=== PATIENT | female | born 1955 | race Caucasian/White ===

== ENCOUNTER 2016-10-18 05:07 | Inpatient (IN) | payer MEDICARE, MEDICAID ==
[~2016-10-18] VITALS: Ht 160 cm; Wt 143.8 kg
[2016-10-18] MEDS ORDERED: GEMF600T PO (05:31)
[2016-10-18] MEDS ORDERED: OMEP20CA3 PO (05:31)
[2016-10-18] MEDS ORDERED: DILA100C PO (05:31)
[2016-10-18] MEDS ORDERED: LISI10TA2 PO (05:31)
[2016-10-18] MEDS ORDERED: PHEN100C PO (05:31)
[2016-10-18] MEDS ORDERED: SERT-138 PO (05:31)
[2016-10-18] MEDS ORDERED: PHEN30CA PO (05:31)
[2016-10-18] MEDS ORDERED: MOM 30ML SUSPENSION UDC PO PRN (09:15)
[2016-10-18] MEDS ORDERED: MAALOX 30 ML SUSP *UDC PO PRN (09:15)
[2016-10-18] MEDS ORDERED: traZODone 50 MG TAB PO PRN (09:15)
[2016-10-18] MEDS ORDERED: IBUP1TAB7 PO (09:32)
[2016-10-18 10:45] VITALS: BP 135/73
[2016-10-18] MEDS: SERTRALINE 100 MG TAB PO SCH (11:53)
[2016-10-18] MEDS: LISINOPRIL 10 MG TAB PO SCH (11:53)
[2016-10-18] MEDS: OMEPRAZOLE 20 MG CAP PO SCH ×2 (11:53→20:05)
[2016-10-18] MEDS: GEMFIBROZIL 600 MG TAB PO SCH ×2 (12:03→20:05)
[2016-10-18] MEDS: hydroCHLOROthiazide 12.5 MG CAPSULE PO SCH (12:03)
[2016-10-18] MEDS: PHENYTOIN ER 100 MG CAP PO SCH ×2 (14:14→20:06)
[2016-10-18 18:26] VITALS: BP 122/78
[2016-10-18] MEDS: PHENYTOIN ER 30 MG CAP PO SCH (20:05)
[2016-10-18] MEDS: IBUPROFEN 800 MG TAB PO PRN (20:07)
[2016-10-18] MEDS: ACETAMINOPHEN TAB 650MG DOSE (2X325MG) PO PRN (23:09)
[2016-10-19] MEDS ORDERED: LORazepam 1 MG TAB PO STA (02:35)
[2016-10-19] MEDS: IBUPROFEN 800 MG TAB PO PRN ×2 (02:41→14:38)
--- NOTE | 2016-10-19 05:00 | REPUSA ---
CLINICAL HISTORY: Pain. Fall. COMMENTS: AP view only. Distal tib/fib are not in the field of view. The soft tissues are normal. There is no mass or abnormal calcification. There is no fracture or disl ocation. IMPRESSION: No fracture or dislocation on the available 1 view. Thank you for your kind referral of this patient.
[2016-10-19 06:29] VITALS: BP 142/84
--- NOTE | 2016-10-19 07:22 | REP ---
CT of the brain without IV contrast: There is no hemorrhage. There is no focal edema, no mass effect or midline shift. The cortical stripe is unremarkable. Ventricles are normal size and midline. The visualized paranasal sinuses and mastoid air cells are unremarkable. The head is positioned asymmetrically in the scanning gantry. Impression: There is no hemorrhage, acute infarct or mass. Negative CT study of the brain. Signed by Shashank Mcfadden MD 10/19/2016 07:13 A
[2016-10-19] MEDS: GEMFIBROZIL 600 MG TAB PO SCH ×2 (08:50→22:52)
[2016-10-19] MEDS: OMEPRAZOLE 20 MG CAP PO SCH ×2 (08:50→22:51)
[2016-10-19] MEDS: hydroCHLOROthiazide 12.5 MG CAPSULE PO SCH (08:50)
[2016-10-19] MEDS: PHENYTOIN ER 100 MG CAP PO SCH ×2 (08:50→22:51)
[2016-10-19] MEDS: SERTRALINE 100 MG TAB PO SCH (08:50)
[2016-10-19] MEDS: LISINOPRIL 10 MG TAB PO SCH (08:50)
[2016-10-19] MEDS: ACETAMINOPHEN TAB 650MG DOSE (2X325MG) PO PRN ×2 (08:51→19:42)
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
[2016-10-19 18:37] VITALS: BP 129/66
[2016-10-19] MEDS: PHENYTOIN ER 30 MG CAP PO SCH (22:51)
--- NOTE | 2016-10-19 23:00 | REPUSA ---
CLINICAL HISTORY: Fall. COMPARISON: No study for comparison is available at the time of interpretation. TECHNIQUE: DX right ankle, 4 views Osseous structures: On lateral view, there is a 2 x 6 mm bone fragment superimposed at the dorsal asp ect of the talar head which may be acute or chronic. Plantar calcaneal spur at the plantar fascia ins ertion, which may predispose to plantar fasciitis. Posterior calcaneal spur at the Achilles tendon in sertion, which may indicate Achilles tendinosis. Joint spaces: The bones are well aligned. No articular surface abnormality is noted. Soft tissues: There is normal appearance of the soft tissues with no radiopaque foreign body seen. IMPRESSION: 1. Bone fragment dorsal to the talar head which may be acute or chronic. If there is point tenderness at the anterior joint space, consider further evaluation with ankle CT or MRI. 2. Calcaneal spurs.
--- NOTE | 2016-10-19 23:10 | REPUSA ---
CLINICAL HISTORY: Fall. COMPARISON: No study for comparison is available at the time of interpretation. TECHNIQUE: DX right foot, 4 views Osseous structures: On lateral view, there is a 2 x 6 mm bone fragment superimposed at the dorsal asp ect of the talar head which may be acute or chronic. There is some irregularity at the base of the 5t h proximal phalanx. Plantar calcaneal spur at the plantar fascia insertion, which may predispose to p lantar fasciitis. Posterior calcaneal spur at the Achilles tendon insertion, which may indicate Achil les tendinosis. Joint spaces: There is mild arthrosis at the 1st interphalangeal joint. Soft tissues: There is normal appearance of the soft tissues with no radiopaque foreign body seen. IMPRESSION: 1. Bone fragment dorsal to the talar head which may be acute or chronic. If there is point tenderness at the anterior joint space, consider further evaluation with ankle CT or MRI. 2. Mild irregularity at the base of the 5th proximal phalanx which may be due to healed fracture. Cor relate with physical exam. 3. Calcaneal spurs.
--- NOTE | 2016-10-19 23:20 | REPUSA ---
CLINICAL HISTORY: Fall. COMPARISON: No study for comparison is available at the time of interpretation. TECHNIQUE: DX right knee, 1 view Osseous structures: The osseous structures are normal with no evidence of fracture. Joint spaces: There are degenerative arthritic changes with medial joint space narrowing and marginal osteophytes. Soft tissues: There is normal appearance of the soft tissues with no radiopaque foreign body seen. IMPRESSION: Right knee arthritis. No visible fracture on this single AP view.
--- NOTE | 2016-10-19 23:20 | REPUSA ---
CLINICAL HISTORY: Edema. COMMENTS: Real time sonography with duplex doppler of the right lower extremity was performed with attention to the major deep venous structures. Evaluation reveals the right common femoral, superficial femoral and popliteal veins to be completely compressible without intraluminal thrombus. There is normal spontaneous phasic flow and augmentation . The greater saphenous/common femoral vein junction is patent. IMPRESSION: No evidence of DVT in right lower extremity. Thank you for your kind referral of this patient.
--- NOTE | 2016-10-19 23:20 | REPUSA ---
CLINICAL HISTORY: Fall. COMPARISON: No study for comparison is available at the time of interpretation. TECHNIQUE: DX right hip and AP pelvis, 3 view Osseous structures: The osseous structures are normal with no evidence of fracture or dislocation. Th ere is no osseous lesion or periosteal reaction. Joint spaces: There are mild arthritic changes of the hips. Soft tissues: There is normal appearance of the soft tissues with no radiopaque foreign body seen. IMPRESSION: No fracture.
[2016-10-20] MEDS: ENOXAPARIN 40 MG/0.4 ML SYRINGE (J1650) SC SCH ×2 (00:27→22:29)
--- NOTE | 2016-10-20 06:36 | IPN ---
DATE OF SERVICE: 10/19/2016 The patient today states that her foot is hurting. She had fallen last night. She went to the bathroom and I guess she had some incontinence and slipped on the urine. We did do x-ray of the left lower extremity and upper extremity and there was no acute problems. Encouraged the patient to ask for some Tylenol as needed for the pain. It was difficult to get the patient to tell me how her mood was because she was more focused on her pain. MENTAL STATUS EXAMINATION: She is alert and oriented times three. Eye contact is fairly good. Psychomotor activity is normal. There is no formal thought disorder noted. She is not able to tell me what her mood is like today. Affect is appropriate. She is not psychotic. She denies suicidal or homicidal ideation. Concentration is fair. Memory intact. Insight and judgment is fair. DIAGNOSIS: Adjustment disorder with depressed mood. Rule out other specified depressive disorder. TREATMENT PLAN: We will continue to monitor the patient for continued stabilization of her mood and for continued resolution of any suicidal ideation. HENNA
[2016-10-20 07:16] VITALS: BP 145/75
[2016-10-20] MEDS ORDERED: ENOXAPARIN 40 MG/0.4 ML SYRINGE (J1650) SC SCH (09:00)
[2016-10-20] MEDS: PHENYTOIN ER 100 MG CAP PO SCH ×2 (09:19→22:24)
[2016-10-20] MEDS: OMEPRAZOLE 20 MG CAP PO SCH ×2 (09:19→22:23)
[2016-10-20] MEDS: SERTRALINE 100 MG TAB PO SCH (09:19)
[2016-10-20] MEDS: hydroCHLOROthiazide 12.5 MG CAPSULE PO SCH (09:19)
[2016-10-20] MEDS: LISINOPRIL 10 MG TAB PO SCH (09:19)
[2016-10-20] MEDS: GEMFIBROZIL 600 MG TAB PO SCH ×2 (09:19→22:24)
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
--- NOTE | 2016-10-20 12:16 | IPNPDOC ---
Date Seen The patient was seen on 10/20/16. Progress Note HPI: 60year oldF with a past medical history significant for fall, s/p imaging studies. Pt states she is still having pain in the anterior aspect of the Rt foot. Has been having difficulty bearing weight. Denies any fevers, chills, weakness, fatigue, Headache, Chest Pain, Shortness of breath, cough, palpitations, abdominal pain, N/V/D or changes in bowel or bladder habits. PAST MEDICAL HISTORY: 1. Mild intellectual disability. 2. Hypertension. 3. Depression. 4. Hyperlipidemia. 5. Seizure disorder. 6. Degenerative disc disease of the lumbar spine. 7. Obstructive sleep apnea. She does not wear her continuous positive airway pressure (CPAP). PAST SURGICAL HISTORY: tympanostomy tubes. bilateral carpal tunnel release PE: GEN: 60yoF, appears stated age. No acute distress. Alert and oriented x 3. HEENT: Normocephalic, atraumatic. Sclera are nonicteric. Conjunctiva without injection. Nose midline. No facial asymmetry. Moist mucous membranes. Pharynx pink and moist. Neck supple, trachea midline. CHEST: Regular rate and rhythm, +S1, +S2 LUNGS: Clear to auscultation bilaterally. No wheezes, rales, or rhonchi. Breathing appears symmetric and easy. ABD: Round, soft, non-tender, non-distended. +Bowel sounds throughout. No rebound or guarding. No costovertebral angle tenderness. EXT: Pulses 2+ bilaterally dorsalis pedis and radial. No lower extremity edema appreciated. no ecchymosis or erythema. SKIN: [place], dry, warm. Capillary refill <2sec. No rashes. NEURO: No focal deficits appreciated. XR Rt foot 10/19/16 1. Bone fragment dorsal to the talar head which may be acute or chronic. If there is point tenderness at the anterior joint space, consider further evaluation with ankle CT or MRI. 2. Mild irregularity at the base of the 5th proximal phalanx which may be due to healed fracture. Correlate with physical exam. 3. Calcaneal spurs. U/S RLE No evidence of DVT in right lower extremity. XR Rt ankle 1. Bone fragment dorsal to the talar head which may be acute or chronic. If there is point tenderness at the anterior joint space, consider further evaluation with ankle CT or MRI. 2. Calcaneal spurs. XR hip/pelvis No fracture. XR Rt knee Right knee arthritis. No visible fracture on this single AP view XR Tib/Fib No fracture or dislocation on the available [address] head 10/18/[address] study of the brain A&P: 60year oldF with a past medical history significant for fall, s/p imaging studies. Pt states she is still having pain in the anterior aspect of the Rt foot. 1. Rt foot pain. XR imaging reports reviewed. CT foot/ankle requested. Fall precautions. Elevate as needed. Ice as needed. Tylenol as needed. Consider orthopedic/ PT Clt pending results. DVT prophylaxis. Lovenox SQ daily. 2. HTN. Cont outpt regimen. HCTZ/Lisinopril. 3. HLD. Cont outpt regimen. 4. Seizure disorder. Cont Dilantin. Level WNL. 5. Staff member Andreina present throughout exam. VS, I&O, 24H, Fishbone Vital Signs/I&O Vital Signs Date Time Temp Pulse Resp B/P (MAP) Pulse Ox O2 Delivery O2 Flow Rate FiO2 10/20/16 09:19 145/75 10/20/16 07:16 97.3 65 18 Room Air 10/18/16 10:45 97 Jelena Koo Oct 20, 2016 12:16
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
--- NOTE | 2016-10-20 17:03 | REP ---
CT of the ankle: Axial images are acquired helical scanning and a reformatted sagittal coronal projections. Comparison is the plain film study performed on 10/19/2016. There is a small curvilinear caliber calcification adjacent to the head of the talus marrow laterally compatible with an a avulsion. Just inferior to this there is a small curvilinear calcification along the lateral margin of the calcaneus also compatible with small cortical erosion. Joint spaces are unremarkable. No other fracture is identified. Calcaneal plantar and Achilles spurs are incidentally noted. Impression: There are curvilinear calcifications adjacent to the talus and calcaneus laterally compatible with a avulsions. Signed by Shashank Mcfadden MD 10/20/2016 04:54 P
--- NOTE | 2016-10-20 17:05 | REP ---
CT of the foot without IV contrast: Axial images are acquired helical scanning and a reformatted in sagittal and coronal projections. Comparison is the plain film study of the ankle dated 10/19/2016. There are small curvilinear calcifications adjacent to the talus superolaterally in the adjacent to the lateral margin of the calcaneus compatible with avulsion fractures. Mineralization and joint spaces otherwise are unremarkable. There are no other calcifications. There are calcaneal plantar and Achilles spurs. Signed by Shashank Mcfadden MD 10/20/2016 04:56 P
[2016-10-20 18:00] VITALS: BP 132/75
[2016-10-20] MEDS: PHENYTOIN ER 30 MG CAP PO SCH (22:24)
[2016-10-20] MEDS: ACETAMINOPHEN TAB 650MG DOSE (2X325MG) PO PRN (23:23)
[2016-10-21 06:56] VITALS: BP 120/65
--- NOTE | 2016-10-21 08:35 | IPNPDOC ---
Date Seen The patient was seen on 10/21/16. Progress Note HPI: 60year oldF with a past medical history significant for fall, s/p imaging studies. Pt states she is still having pain in the anterior aspect of the Rt foot. Has been unable to bear weight. Denies any fevers, chills, weakness, fatigue, Headache, Chest Pain, Shortness of breath, cough, palpitations, abdominal pain, N/V/D or changes in bowel or bladder habits. PAST MEDICAL HISTORY: 1. Mild intellectual disability. 2. Hypertension. 3. Depression. 4. Hyperlipidemia. 5. Seizure disorder. 6. Degenerative disc disease of the lumbar spine. 7. Obstructive sleep apnea. She does not wear her continuous positive airway pressure (CPAP). PAST SURGICAL HISTORY: tympanostomy tubes. bilateral carpal tunnel release PE: GEN: 60yoF, appears stated age. No acute distress. Alert and oriented x 3. HEENT: Normocephalic, atraumatic. Sclera are nonicteric. Conjunctiva without injection. Nose midline. No facial asymmetry. Moist mucous membranes. Pharynx pink and moist. Neck supple, trachea midline. CHEST: Regular rate and rhythm, +S1, +S2 LUNGS: Clear to auscultation bilaterally. No wheezes, rales, or rhonchi. Breathing appears symmetric and easy. ABD: Round, soft, non-tender, non-distended. +Bowel sounds throughout. No rebound or guarding. No costovertebral angle tenderness. EXT: Pulses 2+ bilaterally dorsalis pedis and radial. No lower extremity edema appreciated. no ecchymosis or erythema. SKIN: [place], dry, warm. Capillary refill <2sec. No rashes. NEURO: No focal deficits appreciated. XR Rt foot 10/19/16 1. Bone fragment dorsal to the talar head which may be acute or chronic. If there is point tenderness at the anterior joint space, consider further evaluation with ankle CT or MRI. 2. Mild irregularity at the base of the 5th proximal phalanx which may be due to healed fracture. Correlate with physical exam. 3. Calcaneal spurs. U/S RLE No evidence of DVT in right lower extremity. XR Rt ankle 1. Bone fragment dorsal to the talar head which may be acute or chronic. If there is point tenderness at the anterior joint space, consider further evaluation with ankle CT or MRI. 2. Calcaneal spurs. XR hip/pelvis No fracture. XR Rt knee Right knee arthritis. No visible fracture on this single AP view XR Tib/Fib No fracture or dislocation on the available [address] head 10/18/[address] study of the brain CT Rt ankle 10/20/16 There are curvilinear calcifications adjacent to the talus and calcaneus laterally compatible with a avulsions. CT Rt foot 10/20/16 Axial images are acquired helical scanning and a reformatted in sagittal and coronal projections. Comparison is the plain film study of the ankle dated 10/19/2016. There are small curvilinear calcifications adjacent to the talus superolaterally in the adjacent to the lateral margin of the calcaneus compatible with avulsion fractures. Mineralization and joint spaces otherwise are unremarkable. There are no other calcifications. There are calcaneal plantar and Achilles spurs. A&P: 60year oldF with a past medical history significant for fall, s/p imaging studies. Pt states she is still having pain in the anterior aspect of the Rt foot. 1. Rt foot pain. XR imaging reports reviewed. CT foot/ankle noted. Fall precautions. Elevate as needed. Ice as needed. Tylenol as needed. Orthopedic Clt requested, spoke with Sarah Arias NP. Dr Green will evaluate. DVT prophylaxis. Lovenox SQ daily. 2. HTN. HCTZ/Lisinopril. 3. HLD. Cont outpt regimen. Lopid. 4. Seizure disorder. Cont Dilantin. Level WNL. 5. GERD. Continue Prilosec. 6. Staff member Medhat present throughout exam. VS, I&O, 24H, Lill[place] Vital Signs/I&O Vital Signs Date Time Temp Pulse Resp B/P (MAP) Pulse Ox O2 Delivery O2 Flow Rate FiO2 10/21/16 06:56 98.2 72 18 120/65 (83) Room Air 10/18/16 10:45 97 Jelena Koo Oct 21, 2016 08:35
[2016-10-21 08:51] VITALS: BP 120/65
[2016-10-21] MEDS: PHENYTOIN ER 100 MG CAP PO SCH (08:51)
[2016-10-21] MEDS: LISINOPRIL 10 MG TAB PO SCH (08:51)
[2016-10-21] MEDS: hydroCHLOROthiazide 12.5 MG CAPSULE PO SCH (08:51)
[2016-10-21] MEDS: GEMFIBROZIL 600 MG TAB PO SCH (08:51)
[2016-10-21] MEDS: SERTRALINE 100 MG TAB PO SCH (08:51)
[2016-10-21] MEDS: OMEPRAZOLE 20 MG CAP PO SCH (08:51)
[2016-10-21] MEDS: ACETAMINOPHEN TAB 650MG DOSE (2X325MG) PO PRN (10:39)
[2016-10-21] MEDS: IBUPROFEN 800 MG TAB PO PRN (13:19)
--- NOTE | 2016-10-21 13:52 | MHIPNPDOC ---
[facility] Progress Note Progress Note DATE OF SERVICE: 10/21/16 HISTORY: day 4 of admission for depression with alleged SI. VITAL SIGNS: See below. NEW TEST RESULTS: Foot CT: NAME: COURTNEY NAVA DATE OF : 1955 AGE: 60 SEX: F REPORT #: [id number] ROOM: [facility] TECHNOLOGIST: ROHITH DOCTOR: Jelena JUAREZ Ordered for Date&Time: 10/20/16 0859 cc: [~ rep ct ivnm] Service Date&Time: 10/20/16 1451 EXAMINATION REQUESTED: CT-Ankle WITHOUT CONTRAST RIGHT REASON FOR PATIENT VISIT: MHE REASON FOR EXAM/COMMENT: r/o fracture. H/O fall/pain CT of the ankle: Axial images are acquired helical scanning and a reformatted sagittal coronal projections. Comparison is the plain film study performed on 10/19/2016. There is a small curvilinear caliber calcification adjacent to the head of the talus marrow laterally compatible with an a avulsion. Just inferior to this there is a small curvilinear calcification along the lateral margin of the calcaneus also compatible with small cortical erosion. Joint spaces are unremarkable. No other fracture is identified. Calcaneal plantar and Achilles spurs are incidentally noted. Impression: There are curvilinear calcifications adjacent to the talus and calcaneus laterally compatible with a avulsions. Signed by Shashank Mcfadden MD 10/20/2016 04:54 P CURRENT MEDICATIONS: See below. MENTAL STATUS EXAMINATION: Patient is a 60-year old female, who is low intellectual functioning, very pleasant and sweet, obese, sitting in WC with right leg elevated, coloring pictures, wearing hospital gown. Speech: Is slurred due to poor dentition. Language skills are vocabulary is below average but communicates effectively. Thought processes including: goal directed Thought content: child-like however she understands much of what is going on and is appropriate. Abstract reasoning, and computation: fair. Description of associations: fair. Description of abnormal or psychotic thoughts: no psychosis, no delusion or FOI. No BRITTANIE, denies voices or visions and is not suicidal or homicidal. Judgment: limited Insight: fair. Orientation: sufficiently oriented to person, place and time. Recent and remote memory: limited Attention span and concentration:adequate Fund of knowledge: limited Mood: euthymic. Affect: congruent. DIAGNOSES: depressive episode, unspecified Bereavement Borderline intellectual function ASSESSMENT:met with Courtney for 1:1. She was showered and per the nurse had not had a shower in 4 days. She has difficulty completing ADL's at home per Sharri her roommate. Sharri feels a home health aid could be of benefit and we will initiate a referral with the PCP for this. CDP spoke with Sharri who says she is the one who takes care of things for Courtney and they share an apartment in [place]. Sharri does not drive outside of [place]. Sharri reports observing inappropriate laughter from Courtney earlier this week and mood swings. We have not observed this since Courtney has been on the unit. CDP indicated that Sharri seemed to have difficulty explaining what she saw that made her be concerned about Courtney. She did not mention anything about suicide but says she feels Courtney is depressed. Courtney's antidepressant was started about 6 weeks ago and may just now be taking full effect. Courtney agrees to attend counseling for a while following discharge. Courtney was seen by our autism motor specialist and referred to their outpatient group. We will attempt to get her an appointment there today so she does not have to return from [place] to be seen. If pt is not seen and insists on discharge we will do so but if the group can see her tomorrow and pt is willing to stay one more day we will facilitate that for her convenience and wellbeing. Courtney is in good spirits. She misses her home, Sharri and the dog. She is spending her time coloring and peers and staff stop by her room to visit with her. She slept well last night. She was assisted in making a phone call to Sharri who says she may return there. MANAGEMENT PLAN: continue medications and close obs and follow Ortho recommendations. Pt may be discharged today if all arrangements are made to her satisfaction. She will need to be scheduled for counseling at [facility] along with any ortho appts that are not addressed today. We will ask Dr. Anedrson her PCP for a referral for a home health aid. TIME SPENT: 25 minutes. Vital Signs Vital Signs Date Time Temp Pulse Resp B/P (MAP) Pulse Ox O2 Delivery O2 Flow Rate FiO2 10/21/16 10:49 Room Air 10/21/16 08:51 120/65 10/21/16 06:56 98.2 72 18 10/18/16 10:45 97 Current Medications Current Medications Acetaminophen (Tylenol Tab) 650 mg Q6HP PRN PO HEADACHE or DISCOMFORT Last administered on 10/21/16 10:39; Start 10/18/16 at 09:15; Stop 11/17/16 at 09:14 Al Hydrox/Mg Hydrox/Simethicone (Mylanta) 30 ml Q4HP PRN PO HEARTBURN/ INDIGESTION; Start 10/18/16 at 09:15; Stop 11/17/16 at 09:14 Enoxaparin Sodium (Lovenox) 40 mg DAILY SC ; Start 10/20/16 at 09:00; Stop 10/20 at 09:00; Status DC Enoxaparin Sodium (Lovenox) 40 mg DAILY@2100 SC Last administered on 10/20/16 22:29; Start 10/19/16 at 21:00; Stop 10/24/16 at 20:59 Gemfibrozil (Lopid) 600 mg BID PO Last administered on 10/21/16 08:51; Start 10/18/16 at 09:00; Stop 11/17/16 at 08:59 Home Med (Med Rec Complete!) ASDIRECTED XX ; Start 10/18/16 at 09:45; Stop 02/22 at 09:50; Status DC Hydrochlorothiazide (Hydrodiuril) 12.5 mg DAILY PO Last administered on 08:51; Start 10/18/16 at 09:00; Stop 11/17/16 at 08:59 Ibuprofen (Advil) 800 mg TID PRN PO PAIN Last administered on 10/21/16 13:19; Start 10/18/16 at 10:15; Stop 11/17/16 at 10:14 Lisinopril (Prinivil) 10 mg DAILY PO Last administered on 10/21/16 08:51; Start 10/18/16 at 09:00; Stop 11/17/16 at 08:59 Lorazepam (Ativan) 1 mg STAT STAT PO Last administered on 10/19/16 02:41; Start 10/19/16 at 02:35; Stop 10/19/16 at 02:39; Status DC Magnesium Hydroxide (Milk Of Magnesia) 30 ml DAILYPRN PRN PO CONSTIPATION; Start 10/18/16 at 09:15; Stop 11/17/16 at 09:14 Omeprazole (PriLOSEC) 20 mg BID PO Last administered on 10/21/16 08:51; Start 10/18/16 at 09:00; Stop 11/17/16 at 08:59 Phenytoin (Dilantin) 30 mg QHS PO Last administered on 10/20/16 22:24; Start 10/18/16 at 21:00; Stop 11/17/16 at 20:59 Phenytoin (Dilantin) 100 mg QHS PO Last administered on 10/20/16 22:24; Start 10/18/16 at 21:00; Stop 11/17/16 at 20:59 Phenytoin (Dilantin) 200 mg QAM PO Last administered on 10/21/16 08:51; Start 10/18/16 at 09:00; Stop 11/17/16 at 08:59 Sertraline HCl (Zoloft) 100 mg DAILY PO Last administered on 10/21/16 08:51; Start 10/18/16 at 09:00; Stop 11/17/16 at 08:59 Trazodone HCl (Desyrel) 50 mg QHSP PRN PO INSOMNIA Last administered on 22:52; Start 10/18/16 at 09:15; Stop 11/17/16 at 09:14 Allergies Coded Allergies: Pravastatin (Verified Allergy, Intermediate, RASH & MUSCLE PAIN, 06/14/12) Michelle Mayen Oct 21, 2016 13:52
--- NOTE | 2016-10-21 14:37 | CR ---
DATE OF CONSULTATION: 10/21/2016 ADDENDUM TO A NOTE DICTATED BY FREDY THAO PA-C Basically, patient had a fall at home and also apparently in the hospital and she has an injury to her right foot. CT scans and x-rays were obtained and it looks like she has a dorsal talar avulsion fracture, but no other clear evidence of a fracture. I was asked to evaluate her for this. She denies any other injury. She is actually due to be discharged home today and an equalizer boot has been ordered through [facility]. Examination demonstrates that she has some tenderness over the dorsal aspect of her foot. There is some mild swelling evident. She has no evidence of calf tenderness, no palpable cords and no signs of deep venous thrombosis (DVT). She has only minimal ankle tenderness. CT x-rays were reviewed. CT report indicates some bony fragmentation around the talus, probably a dorsal talar avulsion. The x-ray confirms this. I do not see any clear evidence of a talar neck or talar body fracture. IMPRESSION: Dorsal talar avulsion, probably some degree of ankle sprain. Her ankle does not show any clear evidence of a fracture. RECOMMENDATIONS: Would proceed with the equalizer boot as planned. I think she can be partial weightbearing with a walker or assistive device of some sort. Would recommend followup in 7-10 days in the orthopedic office for a repeat x-ray of her foot and ankle, sooner if she is having any problems, and the patient knows to contact us if she has any setbacks or major difficulties.
--- NOTE | 2016-10-21 16:10 | MHDSPDOC ---
[facility] Discharge Summary Discharge Summary DATE OF ADMISSION: Oct 18, 2016 at 10:40 DATE OF DISCHARGE: Oct 21, 2016 DISCHARGE DIAGNOSES: depressive episode, unspecified Bereavement REASON FOR ADMISSION: roommate believed pt had suicidal ideation and was acting inappropriately. CONSULTANTS INVOLVED: Ortho TREATMENT AND PROGRESS ON THE UNIT : pt was admitted for suicidal statement but pt denies ever making such statements. She says she misses her mother who over 10 years ago. She does not have any family locally and she admits to periods of loneliness. Pt has been started on Sertraline 100 mg by her PCP about 6 weeks ago. This medication can take a full 6 weeks to become effective and pt may need a little more time on the medication before it is increased. She has agreed to remain in contact with PCP and to begin some individual therapy at [facility]. HOSPITAL COURSE: Pt had not had a shower in several days and really needed to bathe today. Nursing assisted her. her roommate says she also needs help with ADL's at home and we will ask for a referral from her PCP for a home health aid. Pt was made an appt with PCP that she will receive information on in her discharge paperwork. No med changes were deemed necessary during this admission. Pt was in control of what she said and how she behaved and it is believed things may have been exacerbated by a fall she had prior to arriving at our medical center. Our PA ordered a CT with contrast which showed a likely avulsion involving the right foot. An ortho consult was placed and she was seen by a PA and then by Dr. Restrepo. A boot will be obtained for her and she will be scheduled for outpatient follow up by our Orthopedic group. DISCHARGE ASSESSMENT: Pt was very kind and sweet on the unit. Her injury limited her ambulation and she kept to her room using a wheelchair much of the time. She colored and socialized and was a pleasure to treat. She slept well. She is very hard of hearing and needed her hearing aid almost immediately. She did not arrive with bottom teeth and it is unclear if she has them or ever uses them. She says she can chew just fine using her upper teeth. She took meals regularly while here and toileted herself independently. She is allowed partial weight bearing on her right foot per Dr. Restrepo. She will be discharged to her home in [place] with her roommate Sharri who was contacted about the discharge. MENTAL STATUS EXAMINATION ON DISCHARGE: Patient is a 60-year old female, who is obese, sitting in wheelchair, wearing hospital gown, pleasant, tongue protrudes from mouth. Speech is mumbled or garbled due to poor dentition Language skills are adequate Thought processes including: goal directed Thought content: appropriate. Abstract reasoning, and computation: fair. Description of associations: fair. Description of abnormal or psychotic thoughts: no psychotic symptoms illicited, no suicidal ideation since admission. Judgment: limited. Insight: limited. Orientation to self, time, place and situation intact Recent and remote memory: fair. Attention span and concentration: adequate for her needs. Fund of knowledge: Impaired pt appears to have some intellectual disability based on vocabulary, interests and observed functioning. Mood: euthymic Affect: tired at times MEDICATIONS ON DISCHARGE: no change to medications. meds ordered by PCP are available at home or from her pharmacy. no meds ordered at discharge. She should continue her sertraline and never stop taking it abruptly as it requires a taper. PLAN/FOLLOWUP ARRANGEMENTS: continue sertraline per PCP, begin therapy for bereavement purposes and support, obtain home health aid per order of PCP which needs to be processed through her insurance company. The amount of time spent in the coordination of care for this patient was approximately 30 minutes. Vital Signs/I&Os Vital Signs Date Time Temp Pulse Resp B/P (MAP) Pulse Ox O2 Delivery O2 Flow Rate FiO2 10/21/16 10:49 Room Air 10/21/16 08:51 120/65 10/21/16 06:56 98.2 72 18 10/18/16 10:45 97 Medications Scheduled (Lisinopril/Hydrochlorothi 10-12.5 mg) 1 Tab Tab, 1 TAB PO DAILY, (Reported) LAST FILLED NOV 2015, PT STATES SHE STILL TAKES Gemfibrozil (Gemfibrozil) 600 Mg Tab, 1 TAB PO BID, (Reported) Omeprazole (Omeprazole) 20 Mg Cap, 20 MG PO BID, (Reported) Phenytoin (Dilantin) 30 Mg Capcr, 30 MG PO QHS, (Reported) TOTAL 130MG DOSE QHS Phenytoin Sodium (Phenytoin Sodium Extended) 100 Mg Cap, 200 MG PO QAM, ( Reported) Phenytoin Sodium (Dilantin) 100 Mg Cap, 100 MG PO QHS, (Reported) TOTAL 130MG DOSE QHS Sertraline HCl (Sertraline HCl) 100 Mg Tab, 1 TAB PO DAILY, (Reported) Scheduled PRN Ibuprofen (Ibuprofen) 800 Mg Tab, 800 MG PO TID PRN for PAIN, (Reported) Allergies Coded Allergies: Pravastatin (Verified Allergy, Intermediate, RASH & MUSCLE PAIN, 06/14/12) Michelle Mayen Oct 21, 2016 16:10
--- NOTE | 2016-10-23 13:16 | CR ---
DATE OF CONSULTATION: 10/21/2016 REQUESTING ACCOUNTANT CLERK: ANN Rodriguez HISTORY OF PRESENT ILLNESS: Courtney Cary is a patient who recently was admitted to the [facility] and the other day sustained a fall causing her pain about the right lower extremity with weight bearing. Jelena Koo evaluated her, and a battery of imaging was ordered, including right tibia-fibula xray read unremarkable by Dr. Dusty Vasquez on 10/19/2016. Also, a knee x-ray read by Shashank Snyder, which just showed some knee arthritis. No fractures or bony lesions in either the tibia-fibula or knee. Then, a right hip and pelvis were ordered, which showed no fracture, read by Dr. Snyder on 10/19/2016. Then, a right ankle film, which showed a bony fragment dorsal to the talar head, read by Dr. Snyder on 10/19/2016. An ultrasound performed of the right lower extremity showed no evidence of deep venous thrombosis (DVT). Right foot film showed bony fragment dorsal to the talar head, mild irregularity of the base of the 5th proximal phalanx, calcaneal spur, read by Dr. Snyder. I might add that there is some consideration of bony irregularity at the distal 5th metatarsal. Otherwise, I generally agree with these findings. That was also read on 10/19/2016. For further correlation right foot CT was ordered, read by Dr. Mcfadden, and noted small curvilinear calcifications adjacent to the talus superolaterally and adjacent to the lateral margin of the calcaneus, compatible with avulsion fractures. Also noted calcaneal, plantar, and Achilles spurs. Additionally, for further correlation, a CT right ankle showed curvilinear calcifications adjacent to the talus and calcaneus laterally, compatible with avulsions. Both CTs read by Dr. Mcfadden on 10/20/2016. I generally agree with these findings. The patient otherwise notes her pain to be at the front of the ankle with swelling. It is not worsening. She is told she will likely be discharged in the next 24 hours. Mentions having a walker at home but no CAM or equalizer boot. She is denying any chest pain, shortness of breath, dyspnea on exertion, fever, chills, malaise, upper respiratory or urinary tract symptoms. MEDICAL PROBLEM LIST: Includes: 1. Right foot and ankle contusion, sprain with talar, calcaneal avulsions. 2. Mild intellectual disability. 3. Hypertension. 4. Depression. 5. Hyperlipidemia. 6. Seizure disorder. 7. Degenerative disc disease of the lumbar spine. 8. Obstructive sleep apnea. PAST SURGICAL HISTORY: 1. Tympanostomy tubes. 2. Bilateral carpal tunnel release. FAMILY HISTORY: Is noncontributory. SOCIAL HISTORY: The patient is currently inpatient at [facility] and looks to be discharged to her own home in the next 24 hours. REVIEW OF SYSTEMS: She otherwise denies chest pain, shortness of breath, dyspnea on exertion, fever, chills, malaise, upper respiratory or urinary tract symptoms. Vitals: Hit: 63in / Wt: 143.8kg BMI 56.2kg/m2 PHYSICAL EXAMINATION: This is a pleasant 60-year-old female, morbidly obese. Otherwise, in no acute distress. Alert and orientated times three. Normocephalic. Chest rises symmetrically. Extremities were inspected. The right lower extremity, ankle is 1+ effused with edema about the foot. The patient has generalized tenderness to the anterior ankle and the dorsal, medial, and lateral foot. Distal pulses 2+. She can wiggle her toes just fine. She is otherwise not focally tender about the medial, lateral, or posterior malleolus. Heel cord is intact. Compartments are soft, nontender to palpation. Grossly intact to light touch. Negative calf tenderness, Homans sign, palpable cords. IMAGING STUDIES: As discussed above. No new imaging. IMPRESSION: This is a 60-year-old morbidly obese female who sustained an ankle-foot inversion injury with calcaneal and talar lateral avulsions. RECOMMENDATIONS: We discussed the nature of her injury, and I recommended immobilization by a CAM walker boot and then follow back to [facility] in 7-10 days' time with updated x-rays of the foot and ankle. She does have a walker, realistically, it will be hard for her to completely unload this area. If she is not able to tolerate an equalizer boot and rolling walker, then we would have to have her in a wheelchair. DME will be ordered and coordinated via physical therapy for application and instruction. Thank you for this consult. If Courtney Cary' requires any further orthopaedic consultation or care I encourage my contact. HENNA
== END 2016-10-21 18:00 | disposition home or self-care (01) | DRG 881 ==
LOC: M ED 05:07 → EDBD 05:07 → EDUNIT# 05:07 → M ED 10:27 → M PSY 10:40 → M OR 10-19 10:06 → M PSY 10-19 10:07
PROVIDERS: ADMIT Psychiatry & Neurology Psychiatry; ATTEND Psychiatry & Neurology Psychiatry
DX: F32.9 Major depressive disorder, single episode, unspecified (principal); Z63.4 Disappearance and death of family member; Z79.899 Other long term (current) drug therapy; I10 Essential (primary) hypertension; G40.909 Epilepsy, unspecified, not intractable, without status epilepticus; G47.33 Obstructive sleep apnea (adult) (pediatric); M51.36 Other intervertebral disc degeneration, lumbar region; E78.5 Hyperlipidemia, unspecified; F70 Mild intellectual disabilities

== ENCOUNTER → 2016-12-02 | Outpatient (CLI) | payer MEDICARE, MEDICAID ==
[~2016-12-02] MED LIST: DILA100C PO; GEMF600T PO; IBUP1TAB7 PO; LISI10TA2 PO; OMEP20CA3 PO; PHEN100C PO; PHEN30CA PO; SERT-138 PO
--- NOTE | 2016-12-02 16:11 | REP ---
Right lower extremity deep vein duplex ultrasound: Comparison is 10/19/2016. There is an large right inguinal node measuring 3.8 by a 1.5 by 2.1 cm. In note is echogenic and the soft tissues adjacent to the minor echogenic compatible with inflammation. There is no focal fluid collection. The deep veins demonstrate normal compression, normal Doppler color flow and normal Doppler waveforms with respiration augmentation at multiple levels from the popliteal vein to the common femoral vein. Impression: No deep vein thrombus. There is an inflamed right inguinal node. Signed by Shashank Mcfadden MD 12/02/2016 04:02 P
== END ==
LOC: M RAD 14:57
PROVIDERS: ATTEND Physician Assistant
DX: S92.154D Nondisplaced avulsion fracture (chip fracture) of right talus, subsequent encounter for fracture with routine healing (principal); R22.41 Localized swelling, mass and lump, right lower limb; X58.XXXD Exposure to other specified factors, subsequent encounter